=== PATIENT | female | born 1965 | race Caucasian/White ===

== ENCOUNTER 2016-04-19 15:38 | Emergency (ER) | payer OTHER ==
[~2016-04-19 15:38] MED LIST: Sodium Chloride 0.9% 1,000 ML BAG ONE
[2016-04-19 16:56] LABS: Bilirubin Negative (Negative); Blood, Urine Negative (Negative); Glucose, Urine (Dipstick) >=1000 mg/dL (Negative); Leukocyte Negative (Negative); Nitrite Negative (Negative); Protein, Urine (Dipstick) Negative (Neg-Trace); Specific Gravity, Urine 1.015 (1.005-1.030); Urobilinogen 0.2 mg/dL (0.2-1.0)
[2016-04-19 16:57] LABS: Clarity Clear (Clear)
[2016-04-19 17:05] LABS: Amphetamine Not Detected (NotDetected); Barbiturates Screen Not Detected (NotDetected); Benzodiazepine Screen Detected (NotDetected); Cocaine Metabolite Screen Not Detected (NotDetected); Medtox Control Line Valid? VALID (VALID); Methadone Not Detected (NotDetected); Methamphetamine Not Detected (NotDetected); Opiate Screen Not Detected (NotDetected); Oxycodone Screen Not Detected (NotDetected); Phencyclidine (PCP) Not Detected (NotDetected); THC/Cannabinoid Screen Not Detected (NotDetected); Tricyclic Screen Not Detected (NotDetected)
[2016-04-19 17:37] LABS: #Basophils 0.1 thou/uL (0.0-0.2); #Eosinphils 0.2 thou/uL (0.0-0.7); #Lymphocytes 2.9 thou/uL (1.20-3.40); #Monocytes 0.6 thou/uL (0.11-0.59); #Neutrophils 5.1 thou/uL (1.40-6.50); %Basophils 0.7 % (0.0-1.0); %Eosinophils 2.2 % (0.0-10.0); %Lymphocytes 33.2 % (21.0-51.0); %Monocytes 6.3 % (0.0-10.0); %Neutrophils 57.6 % (42.0-75.0); Hemoglobin 12.6 g/dL (12.0-16.0); Mean Corpuscular HGB CONC 35.1 g/dL (32.0-36.0); Mean Corpuscular Hemoglobin 29.9 pg (27.0-31.0); Mean Corpuscular Volume 85.2 fl (81.0-99.0); Platelet Count 172 thou/uL (130-400); RBC Distribution Width 12.5 % (11.5-14.5); Red Blood Cell (RBC) Count 4.21 mill/uL (4.20-5.40); White Blood Cell (WBC) Count 8.8 thou/uL (4.8-10.8)
[2016-04-19 17:51] LABS: ALT (SGPT) 44 U/L (0-55); AST (SGOT) 31 U/L (5-34); Albumin 3.8 g/dL (3.5-5.0); Alkaline Phosphatase 93 U/L (40-150); Anion Gap 17 mmol/L (10-20); BUN (Urea Nitrogen) 21 mg/dL (9.8-20.1); Bilirubin, Total 0.4 mg/dL (0.2-1.2); Calc. Creatinine Clearance 0 mL/min (70-130); Calcium 9.2 mg/dL (7.8-10.44); Carbon Dioxide 20 mmol/L (22-29); Chloride 95 mmol/L (98-107); Estimated GFR-MDRD 55; Globulin 3.1 g/dL (2.4-3.5); Glucose 444 mg/dL (70-105); Potassium 4.3 mmol/L (3.5-5.1); Protein, Total 6.9 g/dL (6.0-8.3); Sodium 128 mmol/L (136-145)
[2016-04-19] MEDS ORDERED: Insulin Regular 300 UNITS/3 ML VIAL ONE (18:02)
[2016-04-19 18:17] LABS: Bilirubin, Direct 0.1 mg/dL (0.1-0.3)
--- NOTE | 2016-04-19 19:55 | CT ---
CT ABDOMEN AND PELVIS WITHOUT CONTRAST 04/19/16 HISTORY: Swelling. Right hip pain shooting into the leg. COMPARISON: None. TECHNIQUE: CT abdomen and pelvis performed with oral contrast only. FINDINGS: The lung bases are mildly emphysematous. The heart size is normal. No pericardial effusion. Spleen and adrenal glands are unremarkable. Kidneys are slightly atrophic. No nephroureterolithiasis or hydroureteronephrosis. The urinary bladder is distended. There is a fat containing dermatoid in the left adnexa. Severe atherosclerotic plaque throughout the aortoiliac sy stem. Calcified right inguinal lymph node. There is mild mesenteric edema throughout the small bowel . There is extensive fecal material throughout the large bowel. There is focal dilatation of the sup erior mesenteric vein, series 2, image 30. There is dense calcification of the pancreatic head as we ll as a few calcifications in the pancreatic body. Skeleton is unremarkable. IMPRESSION: 1. Focal dilatation of the superior mesenteric vein, series 2, image 30 and 31. Without contras t, this is difficult to evaluate. There is concern that this could be a possible SMV thrombosis. 2. Dense calcifications of the pancreatic head may represent a calcified pancreatic mass. A ded icated multiphase MRI pancreatic protocol recommended. 3. Edema within the small bowel mesenteric could be sequela of venous thrombosis or fluid overl oad. 4. Extensive stool throughout the colon suggestive of constipation. 5. Fat containing dermoid within the left adnexa. POS: [facility]
== END 2016-04-19 19:34 | disposition home or self-care (01) ==
LOC: MADERS 15:38
DX: G89.4 Chronic pain syndrome (principal); R10.9 Unspecified abdominal pain; E11.9 Type 2 diabetes mellitus without complications; E78.5 Hyperlipidemia, unspecified; F41.9 Anxiety disorder, unspecified; F17.210 Nicotine dependence, cigarettes, uncomplicated; Z79.891 Long term (current) use of opiate analgesic; Z79.4 Long term (current) use of insulin; Z79.899 Other long term (current) drug therapy
CPT/HCPCS: 36416; 74176; 80053; 80306; 81003; 82248; 83690; 85025; 86140; 96361; 96374; 36415-59; J1815; J7050

== ENCOUNTER 2018-09-17 18:31 | Emergency (ER) | payer OTHER ==
[~2018-09-17 18:31] MED LIST changes: +Naloxone HCl 2 mg/2 ml Syringe ONE; -Sodium Chloride 0.9% 1,000 ML BAG ONE
[2018-09-17 19:12] LABS: #Eosinphils 0.1 thou/uL (0.0-0.7); #Lymphocytes 2.3 thou/uL (1.20-3.40); #Monocytes 0.5 thou/uL (0.11-0.59); #Neutrophils 2.3 thou/uL (1.40-6.50); %Basophils 0.7 % (0.0-1.0); %Eosinophils 2.6 % (0.0-10.0); %Lymphocytes 43.9 % (21.0-51.0); %Monocytes 8.6 % (0.0-10.0); %Neutrophils 44.3 % (42.0-75.0); Hemoglobin 11.3 g/dL (12.0-16.0); Mean Corpuscular HGB CONC 32.5 g/dL (32.0-36.0); Mean Corpuscular Hemoglobin 26.7 pg (27.0-31.0); Mean Corpuscular Volume 82.3 fL (78.0-98.0); Mean Platelet Volume 6.4 fL (7.4-10.4); Platelet Count 193 thou/uL (130-400); RBC Distribution Width 13.4 % (11.5-14.5); Red Blood Cell (RBC) Count 4.22 mill/uL (4.20-5.40); White Blood Cell (WBC) Count 5.3 thou/uL (4.8-10.8)
[2018-09-17 19:24] LABS: Bilirubin Negative (Negative); Blood, Urine Negative (Negative); Clarity Clear (Clear); Glucose, Urine (Dipstick) >=1000 mg/dL (Negative); Leukocyte Negative (Negative); Nitrite Negative (Negative); Protein, Urine (Dipstick) Negative (Neg-Trace); Urobilinogen 0.2 mg/dL (Less than 2)
[2018-09-17 19:27] LABS: Amphetamine Detected (NotDetected); Benzodiazepine Screen Detected (NotDetected); Cocaine Metabolite Screen Not Detected (NotDetected); Methamphetamine Detected (NotDetected); Opiate Screen Not Detected (NotDetected); Phencyclidine (PCP) Not Detected (NotDetected); THC/Cannabinoid Screen Not Detected (NotDetected); Tricyclic Screen Detected (NotDetected)
[2018-09-17 19:28] LABS: Barbiturates Screen Not Detected (NotDetected); Medtox Control Line Valid? VALID (VALID); Methadone Not Detected (NotDetected); Oxycodone Screen Detected (NotDetected)
[2018-09-17 19:31] LABS: ALT (SGPT) 116 U/L (8-55); AST (SGOT) 126 U/L (5-34); Acetaminophen Less than 6.0 mcg/mL (10.0-30.0); Albumin 3.6 g/dL (3.5-5.0); Alcohol Less than 10 mg/dL (Less than 10); Alkaline Phosphatase 453 U/L (40-150); Anion Gap 17 mmol/L (10-20); BUN (Urea Nitrogen) 22 mg/dL (9.8-20.1); Bilirubin, Total 0.4 mg/dL (0.2-1.2); Calc. Creatinine Clearance 0 mL/min (70-130); Calcium 9.2 mg/dL (7.8-10.44); Carbon Dioxide 23 mmol/L (22-29); Chloride 101 mmol/L (98-107); Estimated GFR-MDRD 36; Globulin 3.8 g/dL (2.4-3.5); Glucose 204 mg/dL (70-105); Lipase 7 U/L (8-78); Potassium 4.7 mmol/L (3.5-5.1); Protein, Total 7.4 g/dL (6.0-8.3); Salicylate Less than 8.0 mg/dL (15.0-30.0); Sodium 136 mmol/L (136-145)
[2018-09-17] MEDS ORDERED: Thiamine HCl 200 MG/2 ML VIAL ONE (19:39)
[2018-09-17] MEDS ORDERED: Multivit, Adult Inj 10 ML VIAL ONE (19:39)
[2018-09-17] MEDS ORDERED: Dextrose 5 %-0.45 % NaCl 1,000 ML ONE (19:39)
--- NOTE | 2018-09-17 19:44 | CT ---
CT HEAD WITHOUT CONTRAST: 09/17/18 INDICATION: Mental status change. Drug overdose. Motion artifact degrades the exam. Ventricles have normal size and position. No evidence of intracranial hemorrhage or mass. No evidence of infarct. Sinuses and mastoids are well aerated. IMPRESSION: No evidence of acute process. POS: [facility]
== END 2018-09-17 20:48 | disposition short-term general hospital (02) ==
LOC: MADERS 18:31
DX: F19.10 Other psychoactive substance abuse, uncomplicated (principal); R41.82 Altered mental status, unspecified; E78.5 Hyperlipidemia, unspecified; I10 Essential (primary) hypertension; E11.9 Type 2 diabetes mellitus without complications; F41.9 Anxiety disorder, unspecified; F17.210 Nicotine dependence, cigarettes, uncomplicated; Z79.899 Other long term (current) drug therapy
CPT/HCPCS: 36415; 70450; 80053; 80306; 80307; 81003; 83690; 84484; 85025; 94760; 96365; 96375; A4353; J2310; J3411; J7042